=== PATIENT | female | born 1990 | race Caucasian/White ===

== ENCOUNTER 2020-12-24 21:00 | Emergency (ER) | payer OTHER ==
[~2020-12-24] VITALS: Ht 167.6 cm; Wt 90.7 kg
[2020-12-24 21:10] VITALS: BP 123/78; Ht 167.6 cm; Wt 90.7 kg
== END 2020-12-25 00:18 | disposition home or self-care (01) ==
LOC: D.ER 21:00
DX: S93.402A Sprain of unspecified ligament of left ankle, initial encounter (principal); M25.572 Pain in left ankle and joints of left foot; X58.XXXA Exposure to other specified factors, initial encounter